=== PATIENT | female | born 1990 | race Caucasian/White ===

== ENCOUNTER → 2019-12-31 | Outpatient (CLI) | payer MEDICAID ==
[2019-12-31 17:20] LABS: ABSOLUTE EOSINOPHILS # (AUTO) 0.1 10^3/uL (0.0-0.6); ABSOLUTE LYMPHOCYTES (AUTO) 1.7 10^3/uL (0.5-4.7); ABSOLUTE MONOCYTES (AUTO) 0.7 10^3/uL (0.1-1.4); ABSOLUTE NEUT (AUTO) 7.7 10^3/uL (1.7-8.2); BASOPHILS % (AUTO) 0.4 % (0-2); EOSINOPHILS % (AUTO) 0.8 % (0-6); HEMATOCRIT 31.9 % (36.0-47.0); LYMPHOCYTES % (AUTO) 16.6 % (13-45); MEAN CORPUSCULAR HEMOGLOBIN 29.5 pg (27.0-33.4); MEAN CORPUSCULAR HGB CONC 34.6 g/dL (32.0-36.0); MEAN CORPUSCULAR VOLUME 85 fl (80-97); MONOCYTES % (AUTO) 7.3 % (3-13); PLATELET COUNT 145 10^3/uL (150-450); RED BLOOD COUNT 3.74 10^6/uL (3.72-5.28); RED CELL DISTRIBUTION WIDTH 13.8 % (11.5-14.0); SEGMENTED NEUTROPHILS % (AUTO) 74.9 % (42-78); TOTAL CELLS COUNTED % (AUTO) 100 %; WHITE BLOOD COUNT 10.2 10^3/uL (4.0-10.5)
[2019-12-31 17:35] LABS: ALBUMIN 3.3 g/dL (3.5-5.0); ALKALINE PHOSPHATASE 107 U/L (38-126); ANION GAP 12 (5-19); ASPARTATE AMINO TRANSFERASE 55 U/L (14-36); BILIRUBIN,DIRECT 0.2 mg/dL (0.0-0.4); BILIRUBIN,TOTAL 0.5 mg/dL (0.2-1.3); BLOOD UREA NITROGEN 9 mg/dL (7-20); CALCIUM 9.6 mg/dL (8.4-10.2); CARBON DIOXIDE 19 mmol/L (22-30); CHLORIDE 105 mmol/L (98-107); GLUCOSE 105 mg/dL (75-110); POTASSIUM 3.9 mmol/L (3.6-5.0); URIC ACID 3.2 mg/dL (2.5-6.2)
== END ==
LOC: OD 16:24
PROVIDERS: ATTEND Obstetrics & Gynecology
DX: O13.9 Gestational [pregnancy-induced] hypertension without significant proteinuria, unspecified trimester (principal); Z3A.00 Weeks of gestation of pregnancy not specified
CPT/HCPCS: 36415; 80053; 83615; 84550; 85025

== ENCOUNTER 2020-01-24 16:13 | Outpatient (CLI) | payer MEDICAID ==
[2020-01-24 16:58] LABS: ABSOLUTE EOSINOPHILS # (AUTO) 0.1 10^3/uL (0.0-0.6); ABSOLUTE LYMPHOCYTES (AUTO) 1.8 10^3/uL (0.5-4.7); ABSOLUTE MONOCYTES (AUTO) 0.6 10^3/uL (0.1-1.4); ABSOLUTE NEUT (AUTO) 6.2 10^3/uL (1.7-8.2); BASOPHILS % (AUTO) 0.4 % (0-2); EOSINOPHILS % (AUTO) 0.8 % (0-6); HEMATOCRIT 35.2 % (36.0-47.0); HEMOGLOBIN 11.7 g/dL (12.0-15.5); LYMPHOCYTES % (AUTO) 20.9 % (13-45); MEAN CORPUSCULAR HEMOGLOBIN 29.1 pg (27.0-33.4); MEAN CORPUSCULAR HGB CONC 33.3 g/dL (32.0-36.0); MEAN CORPUSCULAR VOLUME 87 fl (80-97); MONOCYTES % (AUTO) 7.3 % (3-13); PLATELET COUNT 150 10^3/uL (150-450); RED BLOOD COUNT 4.02 10^6/uL (3.72-5.28); RED CELL DISTRIBUTION WIDTH 16.5 % (11.5-14.0); SEGMENTED NEUTROPHILS % (AUTO) 70.6 % (42-78); TOTAL CELLS COUNTED % (AUTO) 100 %; WHITE BLOOD COUNT 8.8 10^3/uL (4.0-10.5)
[2020-01-24 17:18] LABS: ALBUMIN 3.4 g/dL (3.5-5.0); ALKALINE PHOSPHATASE 135 U/L (38-126); ANION GAP 7 (5-19); ASPARTATE AMINO TRANSFERASE 35 U/L (14-36); BILIRUBIN,DIRECT 0.1 mg/dL (0.0-0.4); BILIRUBIN,TOTAL 0.5 mg/dL (0.2-1.3); BLOOD UREA NITROGEN 11 mg/dL (7-20); CALCIUM 9.5 mg/dL (8.4-10.2); CARBON DIOXIDE 24 mmol/L (22-30); CHLORIDE 104 mmol/L (98-107); GLUCOSE 89 mg/dL (75-110); POTASSIUM 4.1 mmol/L (3.6-5.0); TOTAL PROTEIN 6.1 g/dL (6.3-8.2); URIC ACID 3.9 mg/dL (2.5-6.2)
[2020-01-24 17:23] LABS: APPEARANCE,URINE CLOUDY; BILIRUBIN,URINE NEGATIVE (NEGATIVE); COLOR,URINE YELLOW; GLUCOSE, URINE NEGATIVE (NEGATIVE); KETONES,URINE NEGATIVE (NEGATIVE); LEUKOCYTE ESTERASE,URINE SMALL (NEGATIVE); NITRITE,URINE NEGATIVE (NEGATIVE); PROTEIN,URINE NEGATIVE (NEGATIVE); URINE SPECIFIC GRAVITY 1.009; UROBILINOGEN,URINE NEGATIVE mg/dL (<2.0)
[2020-01-24 17:42] LABS: URINE AMPHETAMINES SCREEN NEGATIVE; URINE BARBITURATES SCREEN NEGATIVE; URINE BENZODIAZEPINES SCREEN NEGATIVE; URINE COCAINE SCREEN NEGATIVE; URINE MARIJUANA (THC) SCREEN NEGATIVE; URINE METHADONE SCREEN NEGATIVE; URINE PHENCYCLIDINE SCREEN NEGATIVE
[2020-01-24 17:46] LABS: UR PRO/CREAT RATIO RESULT 0.5 mg/mg (0.0-0.2); URINE CREATININE 31.3 mg/dL (16-327); URINE PROTEIN 15.2 mg/dL (<12)
--- NOTE | 2020-01-24 18:21 | Non Stress Test Report ---
Non Stress Test Datetime Report Generated by CPN: 01/24/2020 18:21 DEMOGRAPHIC Test Number: 1 EGA NST: 36.6 INDICATION Indication for Study (NST) Other: Pre Eclampcia work up VITAL SIGNS Pulse - NST: 77 NBPSYS NST: 129 NBPDIA NST: 93 MONITORING Monitor Explained: Monitor Explained; Test Explained; Patient Verbalized Understanding Time on Monitor: 01/24/2020 16:27 Time off Monitor: 01/24/2020 16:47 NST Duration: 20 NST INTERVENTIONS NST Interventions: PO Hydration Physician Notified NST: Dr. Hernandez BABY A: [id number] BABY A Movement : Present Contraction Frequency : Irregular FHR Baseline : 15 Accelerations : 15X15 Decelerations : None Variability : Moderate 6-25bpm NST Review: Meets Criteria for Reactive NST NST Review and Verified By : ZOILA Jacinto NST Results: Reactive NST REPORT Report Trigger: Send Report
== END 2020-01-24 18:12 | disposition home or self-care (01) ==
LOC: LC 16:13
PROVIDERS: ATTEND Obstetrics & Gynecology Gynecology
DX: O14.93 Unspecified pre-eclampsia, third trimester (principal); Z3A.36 36 weeks gestation of pregnancy
CPT/HCPCS: 36415; 59025; 80053; 80307; 81005; 82570; 83615; 84156; 84550; 85025; 94760

== ENCOUNTER 2020-01-26 13:37 | Inpatient (IN) | payer MEDICAID ==
[2020-01-26 14:32] LABS: APPEARANCE,URINE CLEAR; BILIRUBIN,URINE NEGATIVE (NEGATIVE); COLOR,URINE STRAW; GLUCOSE, URINE NEGATIVE (NEGATIVE); KETONES,URINE NEGATIVE (NEGATIVE); LEUKOCYTE ESTERASE,URINE SMALL (NEGATIVE); NITRITE,URINE NEGATIVE (NEGATIVE); PROTEIN,URINE NEGATIVE (NEGATIVE); URINE SPECIFIC GRAVITY 1.008; UROBILINOGEN,URINE NEGATIVE mg/dL (<2.0)
[2020-01-26] MEDS ORDERED: PROMETHAZINE HCL INJ 25 MG/1 ML VIAL IV ONE (14:42)
[2020-01-26] MEDS ORDERED: ACETAMINOPHEN 325 MG TABLET PO ONE (14:42)
[2020-01-26] MEDS ORDERED: ACETAMINOPHEN 325 MG TABLET ONE (14:47)
[2020-01-26] MEDS ORDERED: PROMETHAZINE HCL INJ 25 MG/1 ML VIAL ONE (14:47)
[2020-01-26 14:49] LABS: URINE AMPHETAMINES SCREEN NEGATIVE; URINE BARBITURATES SCREEN NEGATIVE; URINE BENZODIAZEPINES SCREEN NEGATIVE; URINE COCAINE SCREEN NEGATIVE; URINE MARIJUANA (THC) SCREEN NEGATIVE; URINE METHADONE SCREEN NEGATIVE; URINE PHENCYCLIDINE SCREEN NEGATIVE
[2020-01-26] MEDS: RINGERS SOLUTION,LACTATED 1,000 ML IV PRN ×2 (15:00→16:32)
[2020-01-26 15:39] LABS: UR PRO/CREAT RATIO RESULT 0.4 mg/mg (0.0-0.2); URINE CREATININE 31.1 mg/dL (16-327); URINE PROTEIN 13.9 mg/dL (<12)
[2020-01-26 15:51] LABS: HEMATOCRIT 34.8 % (36.0-47.0); MEAN CORPUSCULAR HEMOGLOBIN 29.5 pg (27.0-33.4); MEAN CORPUSCULAR HGB CONC 34.3 g/dL (32.0-36.0); MEAN CORPUSCULAR VOLUME 86 fl (80-97); PLATELET COUNT 146 10^3/uL (150-450); RED BLOOD COUNT 4.05 10^6/uL (3.72-5.28); RED CELL DISTRIBUTION WIDTH 16.4 % (11.5-14.0); WHITE BLOOD COUNT 9.4 10^3/uL (4.0-10.5)
[2020-01-26] MEDS ORDERED: CEFAZOLIN 1 GM/D5W RTU 1 GM/50 ML RTUPB IV ONE ×2 (15:56→16:18)
[2020-01-26 16:08] LABS: ALBUMIN 3.4 g/dL (3.5-5.0); ALKALINE PHOSPHATASE 144 U/L (38-126); ANION GAP 9 (5-19); ASPARTATE AMINO TRANSFERASE 31 U/L (14-36); BILIRUBIN,TOTAL 0.4 mg/dL (0.2-1.3); BLOOD UREA NITROGEN 10 mg/dL (7-20); CALCIUM 9.5 mg/dL (8.4-10.2); CARBON DIOXIDE 21 mmol/L (22-30); CHLORIDE 106 mmol/L (98-107); GLUCOSE 88 mg/dL (75-110); POTASSIUM 4.1 mmol/L (3.6-5.0); TOTAL PROTEIN 6.3 g/dL (6.3-8.2); URIC ACID 3.8 mg/dL (2.5-6.2)
[2020-01-26] MEDS ORDERED: CITRIC ACID/SODIUM CITRATE ORAL SOLN 15 ML UDCUP ONE (16:18)
[2020-01-26] MEDS ORDERED: HYDRALAZINE HCL INJ/PF 20 MG/1 ML SDV ONE (16:21)
--- NOTE | 2020-01-26 16:21 | Admission Physical ---
Datetime Report Generated by CPN: 01/26/2020 16:20 CURRENT ADMISSION Chief Complaint: Signs/Symptoms Gestational HTN Indication for Induction: Not Applicable Admit Impression : Term, Intrauterine Admit Plan: Admit to Unit; Initiate Section Protocol ALLERGIES Medication Allergies: No Medication Allergies: No Known Allergies (01/26/2020) Latex: No Latex Allergies Food Allergies: None Environmental Allergies: Bees OBSTETRICAL HISTORY EDC: 02/15/2020 00:00 : 4 Para: 3 Term: 3 : 0 SAB: 0 IAB: 0 Ectopic: 0 Livin Cesareans: 1 VBACs: 1 Multiple Births: 0 Gestational Diabetes: No Rh Sensitization: No Incompetent Cervix: No ESTEFANIA: No Infertility: No ART Treatment: No Uterine Anomaly: Yes IUGR: No Hx Previous C/S: Yes Macrosomia: No Hx Loss/Stillborn: No PIH: Yes Hx : No Placenta Previa/Abruption: No Depression/PP Depression: No PTL/PROM: No Post Hemorrhage: No Current Procedures: Ultrasound; NST Obstetrical History Comments: G1- 2008, Vaginal, IOL G2- 2010, G3- 2012, G4- Current, B/P issues, scheduled SEE RECORDS Alcohol: No Marijuana : No Cocaine: No Other Illicit Drugs: No Cigarettes: Never Smoker. 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 Heart Disease: No Hosp/Surgery: No Autoimmune Disorder: No Anesthetic Complications: No Kidney Disease: Yes Abnormal Pap Smear: No Neuro/Epilepsy: No Psychiatric Disorders: No Other Medical Diseases: No Hepatitis/Liver Disease: No Significant Family History: No Varicosities/Phlebitis: No Trauma/Violence : No Thyroid Dysfunction: No Medical History Comments: H/O uti, childbirth and INFECTIOUS HISTORY Gonorrhea: No Genital Herpes: Yes Chlamydia: No Tuberculosis: No Syphilis: No Hepatitis: No HIV/AIDS Exposure: No Rash or Viral Illness: No HPV: No Infectious History Comments: Started Valtrex 01/25/2020 PHYSICAL EXAM General: Normal HEENT: Normal Neurologic: Normal Thyroid: Normal Heart: Normal Lungs: Normal Breast: Deferred Back: Normal Abdomen: Normal Genitourinary Exam: Normal Extremities: Normal DTRs: Normal Pelvic Type: Adequate Vital Signs: Reviewed FETUS A EGA: 37.1 Monitoring: External US FHR- Baseline: 140 Variability: Moderate 6-25bpm Decelerations: None FHR Category: Category I Presentation: Vertex Admit Comment: Pt with gestational hypertension at 37 wks for a repeat c section. PLANS FOR LABOR AND DELIVERY Labor and Delivery: None Pain Management: Spinal Feeding Preference: Breast Benefit of Breast Feed Discussed: Yes Circumcision: Yes INFORMED CONSENT Signature: with User ID: [email or web address]
[2020-01-26] MEDS ORDERED: HYDRALAZINE HCL INJ/PF 20 MG/1 ML SDV IV ONE (16:25)
[2020-01-26] MEDS ORDERED: OXYCODONE-ACETAMINOPHEN 5-325 MG TABLET PO PRN (16:29)
[2020-01-26] MEDS ORDERED: ACETAMINOPHEN 325 MG TABLET PO PRN (16:29)
[2020-01-26] MEDS ORDERED: OXYTOCIN/0.9 % SODIUM CHLORIDE 30 UNIT/500 ML RTUINJ IV PRN (16:29)
[2020-01-26] MEDS ORDERED: DIPH/PERTUSS(ACELL)/TETANUS VAC/PF 0.5 ML SYR (>=10YO) IM PRN (16:29)
[2020-01-26] MEDS ORDERED: PROMETHAZINE HCL INJ 25 MG/1 ML VIAL IV PRN (16:29)
[2020-01-26] MEDS ORDERED: ACETAMINOPHEN 1,000 MG/100 ML RTUPB IV PRN (16:29)
[2020-01-26] MEDS ORDERED: MEASLES,MUMPS&RUBELLA VACC/PF 0.5 ML VIAL SUBCUT PRN (16:29)
[2020-01-26] MEDS ORDERED: SIMETHICONE 80 MG TAB.CHEW PO PRN (16:29)
[2020-01-26] MEDS ORDERED: RINGERS SOLUTION,LACTATED 1,000 ML IV PRN (16:29)
[2020-01-26] MEDS ORDERED: HYDROMORPHONE HCL INJ/PF 2 MG/ML AMPULE IV PRN (16:29)
[2020-01-26] MEDS ORDERED: OXYTOCIN 10 UNIT/ML VIAL ONE (16:53)
[2020-01-26] MEDS ORDERED: OXYTOCIN/0.9 % SODIUM CHLORIDE 30 UNIT/500 ML RTUINJ ONE (16:53)
[2020-01-26] MEDS ORDERED: EPHEDRINE SULFATE INJ 50 MG/1 ML AMPULE ONE (16:53)
[2020-01-26] MEDS ORDERED: ONDANSETRON HCL INJ/PF 4 MG/2 ML SDV ONE (16:53)
[2020-01-26] MEDS ORDERED: MIDAZOLAM 2 MG/2 ML INJ ONE (16:53)
[2020-01-26] MEDS ORDERED: FENTANYL CITRATE INJ/PF 100 MCG/2 ML AMPUL ONE (16:53)
[2020-01-26] MEDS ORDERED: KETOROLAC TROMETHAMINE INJ/PF 30 MG/1 ML SDV ONE (16:53)
[2020-01-26] MEDS ORDERED: ACETAMINOPHEN 1,000 MG/100 ML RTUPB IV ONE (16:53)
[2020-01-26] MEDS ORDERED: MAGNESIUM SULFATE 4 GM/100 ML RTUPB IV ONE ×2 (18:00→19:08)
--- NOTE | 2020-01-26 18:00 | Operative Report ---
Operative Report DATE OF SURGERY: 01/26/20 PREOPERATIVE DIAGNOSIS: Repeat and tubal ligation, severe preeclampsia POSTOPERATIVE DIAGNOSIS: Same OPERATION: Repeat via low transverse uterine incision and bilateral tubal ligation using Filshie clips SURGEON: CORRIE MENESES ANESTHESIA: Spinal TISSUE REMOVED OR ALTERED: Placenta COMPLICATIONS: None ESTIMATED BLOOD LOSS: 400 cc INTRAOPERATIVE FINDINGS: Viable male crying at delivery PROCEDURE: Patient was taken to the OR and placed in supine position after her spinal anesthesia. She is prepared and draped in sterile fashion. Gross was placed for drainage of the bladder. Low transverse incision was made and carried down the level of the fascia. The fascial incision was made with knife and extended bilaterally with curved Ohara scissors. The fascia was off the rectus muscles using sharp and blunt dissection. The rectus muscles are in the midline. The peritoneum was entered without incident. Bladder blade was placed in uterine segment was identified. A low transverse incision was made creating a bladder flap. Bladder blade was placed low transverse uterine incision was made with the knife and extended with fingertips. The baby was delivered with some fundal pressure. Mouth and nose were suctioned free. The cord is doubly clamped and cut. Baby is passed off to the test development engineer in attendance. The placenta was manually extracted with trailing membranes. The uterus was externalized wrapped in a moist lap sponge. Uterine contents wiped free. Uterus was closed with a running locking layer of 0 chromic suture using the second layer to imbricate the first completing a double layer closure of the uterus. The serosa was closed with a running 2-0 chromic stitch. The tubal ligation was performed by identifying each fallopian tube fimbriated end and then placing a Filshie clip across the mid isthmic portion of each tube. The pelvis was irrigated and suctioned free of fluid the uterus was replaced in the abdomen. The abdominal wall peritoneum was closed with running 2-0 chromic stitch. Fascia was closed with a running 0 Vicryl in 2 segments. Kathleen's layer was brought together with 0 plain gut stitch and the skin was closed with running subcuticular 4-0 undyed Vicryl stitch. The wound was dressed mother and baby did well.
[2020-01-26] MEDS ORDERED: NALBUPHINE HCL INJ 10 MG/1 ML AMPULE ONE (18:03)
[2020-01-26] MEDS ORDERED: MAGNESIUM SULFATE 20 GM/500 ML RTUINJ IV ONE (19:08)
[2020-01-26] MEDS: MAGNESIUM SULFATE 20 GM/500 ML RTUINJ IV PRN (19:55)
[2020-01-26] MEDS ORDERED: OXYCODONE-ACETAMINOPHEN 5-325 MG TABLET ONE ×2 (20:20→21:01)
[2020-01-26] MEDS: DOCUSATE SODIUM 100 MG CAPSULE PO SCH (20:40)
[2020-01-26] MEDS: KETOROLAC TROMETHAMINE INJ/PF 30 MG/1 ML SDV IV SCH (22:35)
[2020-01-27] MEDS: OXYCODONE-ACETAMINOPHEN 5-325 MG TABLET PO PRN ×4 (01:42→19:09)
[2020-01-27] MEDS: MAGNESIUM SULFATE 20 GM/500 ML RTUINJ IV PRN (04:48)
[2020-01-27 06:49] LABS: HEMATOCRIT 30.3 % (36.0-47.0); HEMOGLOBIN 10.2 g/dL (12.0-15.5); MEAN CORPUSCULAR HEMOGLOBIN 29.1 pg (27.0-33.4); MEAN CORPUSCULAR HGB CONC 33.6 g/dL (32.0-36.0); MEAN CORPUSCULAR VOLUME 87 fl (80-97); PLATELET COUNT 135 10^3/uL (150-450); RED CELL DISTRIBUTION WIDTH 16.9 % (11.5-14.0); WHITE BLOOD COUNT 12.5 10^3/uL (4.0-10.5)
[2020-01-27] MEDS ORDERED: KETOROLAC TROMETHAMINE INJ/PF 30 MG/1 ML SDV ONE (07:13)
[2020-01-27] MEDS: KETOROLAC TROMETHAMINE INJ/PF 30 MG/1 ML SDV IV SCH ×2 (07:15→15:17)
--- NOTE | 2020-01-27 07:59 | Delivery Summary ---
Del Sum A-C Datetime Report Generated by CPN: 01/27/2020 07:58 DELIVERY PERSONNEL DELIVERY PERSONNEL: [id number] Delivery Doctor:: Jessy Quiroz MD PAINTER AND BODY MECHANIC APPRENTICE:: Hai Su CRNA Superintendent Colliery:: SAMUEL Pierre Nurse Practitioner:: NGOC Trevino (Annotations: Data stored by Lesly on behalf of user) Nursery Nurse:: Minda Bonilla RN Spring Clipper/FLOOR SPACE ALLOCATOR: ST Jae Spring Clipper/FLOOR SPACE ALLOCATOR: Deon Cifuentes, DIGITAL PHOTO PRINTER MATERNAL INFORMATION Delivery Anesthesia: Spinal Medications After Delivery: Pitocin 30 Units in 500ml NS/D5W Delivery QBL: 430 Maternal Complications: None LABOR SUMMARY EDC: 02/15/2020 00:00 No. Babies in Womb: 1 Attempted: No Labor Anesthesia: None LABOR INFORMATION Reason for Induction: Not Applicable Oxytocin: N/A Group B Beta Strep: positive Antibiotics # of Doses: 1 Antibiotics Time of Last Dose: 01/26/2020 16:29 Name of Antibiotic Given: Ancef Steroids Given: None Reason Steroids Not Administered: Not Applicable MEMBRANES Membranes Rupture Method: Artificial Rupture of Membranes: 01/26/2020 17:29 Length of Rupture (hr): 0.00 Amniotic Fluid Color: Clear Amniotic Fluid Amount: Moderate Amniotic Fluid Odor: Normal STAGES OF LABOR Stage 3 hr: 0 Stage 3 min: 1 VAGINAL DELIVERY Episiotomy: None Laceration #1: None Laceration Extension #1: N/A Laceration Repair: Not Applicable Sponge Count Correct: N/A Sharps Count Correct: N/A CSECTION DELIVERY Primary Indication: repeat Secondary Indication: pre-eclampsia CSection Urgency: Non-Scheduled CSection Incidence: Repeat Labor: No Labor Elective: Nonelective CSection Incision: Lower Uterine Transverse BABY A INFORMATION Infant Delivery Date/Time: 01/26/2020 17:29 Method of Delivery: Nurse Controlled Delivery: No Born in Route : No : N/A Forceps: N/A Vacuum Extraction: N/A Shoulder Dystocia : No PRESENTATION/POSITION BABY A Presentation: Cephalic Breech Presentation: N/A PLACENTA INFORMATION BABY A Placenta Delivery Time : 01/26/2020 17:30 Placenta Method of Delivery: Manual Removal Placenta Status: Delivered SCORES BABY A Heart Rate 1 min: >100 bpm Resp Effort 1 min: Good Cry Reflex Irritability 1 min: Cough or Sneeze or Pulls Away Muscle Tone 1 min: Active Motion Color 1 min: Blue/Pale Resuscitation Effort 1 min: Tactile Stimulation SCORE 1 MIN: 8 Heart Rate 5 min: >100 bpm Resp Effort 5 min: Good Cry Reflex Irritability 5 min: Cough or Sneeze or Pulls Away Muscle Tone 5 min: Active Motion Color 5 min: Body Jolly, Extremities Blue SCORE 5 MIN: 9 INFORMATION BABY A Gestational Age at Delivery: 37.1 Gestational Status: Early Term- 37- 38.6 Weeks Outcome : Liveborn Infant Condition : Stable Sex: Male IDENTIFICATION BABY A Verification Date/Time: 01/26/2020 18:20 ID Band Number: [id number] Mother's Name Verified: Yes RN Verifying : SAutry Additional Verifying Personnel: B Baidy WEIGHT/LENGTH BABY A Infant Birthweight (gm): 2720 Infant Weight (lb): 6 Weight (oz): 0 Length (in): 19.50 Length (cm): 49.53 CORD INFORMATION BABY A No. Cord Vessels: 3 Nuchal Cord : N/A Cord Blood Taken: Yes-For Eval (Mom's Blood Type - or O+) ASSESSMENT BABY A Skin to Skin: Yes BABY B INFORMATION : N/A
--- NOTE | 2020-01-27 07:59 | Birth Certificate Data ---
Cert Data Datetime Report Generated by CPN: 01/27/2020 07:58 CERTIFICATE DATA Delivery Provider: Jessy Quiroz MD (01/24/2020 16:19:Rhona Truong RN) 47b. Date of First Visit: 11/15/2019 00:00 (01/24/2020 16:19:Rhona Truong RN) 47c. Date of Last Visit: 01/24/2020 00:00 (01/24/2020 16:19:Rhona Truong RN) 47d. Number of Visits: 9 (01/24/2020 16:19:Rhona Truong RN) 48a. Number of Prev Live Births: 3 (01/24/2020 16:19:Deon Cifuentes RN) 48b. Now Livin (01/24/2020 16:19:Deon Cifuentes RN) 48c. Live Births Now : 0 (01/24/2020 16:19:QS system process) 48e. Losses: 0 (01/24/2020 16:19:Deon Cifuentes RN) RISK FACTORS IN THIS 49a. Diabetes: No (01/24/2020 16:19:Deon Cifuentes RN) 49b. Hypertension: No (01/24/2020 16:19:Deon Cifuentes RN) Type of Hypertension: Gestational (PIH, Pre-eclampsia) (01/24/2020 16:19:Deon Cifuentes RN) 49c. Previous Births: 0 (01/24/2020 16:19:Deon Cifuentes RN) 49d. Stillborns: No (01/24/2020 16:19:Deon Cifuentes RN) 49d. IUGR: No (01/24/2020 16:19:Deon Cifuentes RN) 49e. Infertility Treatment: No (01/24/2020 16:19:Deon Cifuentes RN) 49f. Previous Cesareans: 1 (01/24/2020 16:19:Deon Cifuentes RN) Mother's Height 50b. Height Inches: 62 (01/26/2020 13:47:QS system process) Mother's Weight 51a. Pre- Weight (lbs): 103 (01/24/2020 16:19:Rhona Truong RN) 51b. Weight at Delivery (lbs): 139 (01/24/2020 16:24:QS system process) Infections Present/Treated 53a. Gonorrhea: No (01/24/2020 16:19:Deon Cifuentes RN) Results this Hospital Visit : Negative (01/24/2020 16:19:Sheyla Sultana RN) 53b. Syphilis: No (01/24/2020 16:19:Deon Cifuentes RN) 53c. Chlamydia: No (01/24/2020 16:19:Deon Cifuentes RN) Results this Hospital Visit: Negative (01/24/2020 16:19:Sheyla Sultana RN) 53d. Hepatitis B: No (01/24/2020 16:19:Deon Cifuentes RN) Results this Hospital Visit: Negative (01/24/2020 16:19:Deon Cifuentes RN) 53e. Hepatitis C: Negative (01/24/2020 16:19:Sheyla Sultana RN) 53h. Mother Tested for HBsAG: Yes (01/24/2020 16:19:Sheyla Sultana RN) 53j. Test Result: Negative (01/24/2020 16:19:Deon Cifuentes RN) Obstetric Procedures 54a, b, c. Obstetric Procedures: Ultrasound; NST (01/24/2020 16:19:Deon Cifuentes RN) Cigarette Smoking Cigarette Smoking: Never Smoker. [id number] (01/24/2020 16:19:Deon Cifuentes RN) 55a. 3 Months Before Preg - Ci (01/24/2020 16:19:Deon Cifuentes RN) 55a. Packs: 0 (01/24/2020 16:19:Deon Cifuentes RN) 55b. 1st Trimester of Preg- Ci (01/24/2020 16:19:Deon Cifuentes RN) 55b. Packs: 0 (01/24/2020 16:19:Deon Cifuentes RN) 55c. 2nd Trimester of Preg- Ci (01/24/2020 16:19:Deon Cifuentes RN) 55c. Packs: 0 (01/24/2020 16:19:Deon Cifuentes RN) 55d. 3rd Trimester of Preg- Ci (01/24/2020 16:19:Deon Cifuentes RN) 55d. Packs: 0 (01/24/2020 16:19:Deon Cifuentes RN) Onset of Labor 56a. PROM >12 Hrs: 0.00 (01/24/2020 16:19:QS system process) 57a. Induction of Labor: N/A (01/24/2020 16:19:Rhona Truong RN) 57d. Steroids - Lung Mat: None (01/24/2020 16:19:Rhona Truong RN) 57d. Steroids - Lung Mat: Not Applicable (01/24/2020 16:19:Rhona Truong RN) 57e. Antibiotics During Labor: 01/26/2020 16:29 (01/24/2020 16:19:Sheyla Sultana RN) 57f. Mat [place] or Temp >100.4: 98.6 (01/24/2020 16:19:Nikky Vásquez RN) 57g. Moderate/Heavy Meconium: Clear (01/24/2020 16:19:Sheyla Sultana RN) 57h. Intolerance of Labor: repeat (01/24/2020 16:19:Sheyla Sultana RN) : pre-eclampsia (01/24/2020 16:19:Sheyla Sultana RN) 57i. Epidural/Spinal Anesthesia: None (01/24/2020 16:19:Rhona Truong RN) Method of Delivery 58a. Forceps - Unsuccessful A: N/A (01/24/2020 16:19:Rhona Truong RN) 58b. Vacuum - Unsuccessful A: N/A (01/24/2020 16:19:Rhona Truong RN) 58c. Presentation at 58c. Presentation at - A : N/A (01/24/2020 16:19:Rhona Truong RN) 58c. Presentation at - A : Cephalic (01/24/2020 16:19:Carlos Kent, DOCUMENT MANAGER) Final Route and Method of Del 58d. Baby A Route/Delivery: (01/24/2020 16:19:Rhona Truong RN) 58e. Trial of Labor Attempted: No (01/24/2020 16:19:Rhona Truong RN) 58e. Trial of Labor Attempted A: N/A (01/24/2020 16:19:Rhona Truong RN) 58e. Trial of Labor Attempted B: N/A (01/24/2020 16:19:Rhona Truong RN) Maternal Morbidity 59b. 3rd or 4th Degree Lacs: None (01/24/2020 16:19:Rhona Truong RN) Birthweight Baby A: 2720 (01/24/2020 16:19:Rhona Truong RN) 60a. Pounds : 6 (01/24/2020 16:19:QS system process) 60b. Ounces: 0 (01/24/2020 16:19:QS system process) 61. GA at Delivery Baby A: 37.1 (01/24/2020 16:19:Rhona Truong RN) : Early Term- 37- 38.6 Weeks (01/24/2020 16:19:QS system process) 62a. 5 Minute Baby A: 9 (01/24/2020 16:19:QS system process)
--- NOTE | 2020-01-27 10:22 | PDOC PROGRESS REPORT ---
Subjective-OB Progress Note for:: 01/27/20 Subjective: feeling good, sitting up in bed with baby, pain under control, voiding, eating well Physical Exam (OB) Vital Signs: Temp Pulse Resp BP Pulse Ox 97.6 F 76 18 132/80 H 98 01/27/20 10:00 01/27/20 08:22 01/27/20 08:22 01/27/20 08:22 01/27/20 08:22 Intake & Output 01/26/20 01/27/20 01/28/20 07:59 06:59 06:59 Intake Total Balance Weight - Maternal Morbidity 59. Maternal Morbidity (serious complications experinced by the mother associated with labor and delivery: None of the above Objective-Diagnostic Laboratory: 01/27/20 06:35 01/26/20 15:25 01/26/20 01/26/20 01/26/20 13:46 15:25 15:25 WBC 9.4 RBC 4.05 Hgb 12.0 Hct 34.8 L MCV 86 MCH 29.5 MCHC 34.3 RDW 16.4 H Plt Count 146 L Sodium 136.1 L Potassium 4.1 Chloride 106 Carbon Dioxide 21 L Anion Gap 9 BUN 10 Creatinine 0.54 Est GFR ( Amer) > 60 Glucose 88 Uric Acid 3.8 Calcium 9.5 Total Bilirubin 0.4 AST 31 Alkaline Phosphatase 144 H Total Protein 6.3 Albumin 3.4 L Urine Color STRAW Urine Appearance CLEAR Urine pH 8.0 Ur Specific [place] 1.008 Urine Protein NEGATIVE Urine Glucose (UA) NEGATIVE Urine Ketones NEGATIVE Urine Blood NEGATIVE Urine Nitrite NEGATIVE Ur Leukocyte Esterase SMALL H Urine WBC (Auto) 0 Urine RBC (Auto) 0 Blood Type Antibody Screen 01/26/20 01/27/20 16:08 06:35 WBC 12.5 H RBC 3.50 L Hgb 10.2 L Hct 30.3 L MCV 87 MCH 29.1 MCHC 33.6 RDW 16.9 H Plt Count 135 L Sodium Potassium Chloride Carbon Dioxide Anion Gap BUN Creatinine Est GFR ( Amer) Glucose Uric Acid Calcium Total Bilirubin AST Alkaline Phosphatase Total Protein Albumin Urine Color Urine Appearance Urine pH Ur Specific [place] Urine Protein Urine Glucose (UA) Urine Ketones Urine Blood Urine Nitrite Ur Leukocyte Esterase Urine WBC (Auto) Urine RBC (Auto) Blood Type O POSITIVE Antibody Screen NEGATIVE Assessment and Plan(PN) - Assessment and Plan (1) Mild pre-eclampsia delivered Is this a current diagnosis for this admission?: Yes (2) Status post repeat low transverse section Is this a current diagnosis for this admission?: Yes - Time Spent with Patient Time with patient: Less than 15 minutes Medications reviewed and adjusted accordingly: Yes - Disposition Anticipated Discharge Disposition: Home, Self Care Anticipated Discharge Timeframe: within 48 hours
[2020-01-27] MEDS: DOCUSATE SODIUM 100 MG CAPSULE PO SCH ×2 (10:28→17:17)
[2020-01-27] MEDS: PRENATAL VITAMIN W DHA CAPSULE PO SCH (10:29)
[2020-01-27] MEDS: IBUPROFEN 800 MG TABLET PO SCH ×2 (18:58→23:02)
[2020-01-28] MEDS: IBUPROFEN 800 MG TABLET PO SCH ×2 (05:56→12:37)
[2020-01-28] MEDS: DOCUSATE SODIUM 100 MG CAPSULE PO SCH (09:14)
[2020-01-28] MEDS: PRENATAL VITAMIN W DHA CAPSULE PO SCH (09:14)
--- NOTE | 2020-01-28 11:05 | PDOC DISCHARGE SUMMARY ---
Impression - Admit/DC Date/PCP Admission Date/Primary Care Provider: 01/26/20 16:00 JOHAN LEMOS MD Discharge Date: 01/28/20 - Discharge Diagnosis (1) Status post repeat low transverse section Is this a current diagnosis for this admission?: Yes - Additional Information Discharge Diet: Regular Discharge Activity: Balance Activity w/Rest, No Lifting Over 10 Pounds, No Lifting/Push/Pulling, Pelvic Rest, No tub bath Referrals: [facility] [Provider Group] Prescriptions: Oxycodone HCl/Acetaminophen [Percocet 5-325 mg Tablet] 1 tab PO Q4HP PRN #30 tablet PRN Reason: Home Medications: Vit No.130/Iron/Folic [ Tablet] 1 each PO DAILY 01/24/20 Oxycodone HCl/Acetaminophen [Percocet 5-325 mg Tablet] 1 tab PO Q4HP PRN #30 tablet 01/28/20 Hospital Course 59. Maternal Morbidity (serious complications experinced by the mother associated with labor and delivery: None of the above Results Laboratory Results: WBC 12.5 10^3/uL (4.0-10.5) H 01/27/20 06:35 RBC 3.50 10^6/uL (3.72-5.28) L 01/27/20 06:35 Hgb 10.2 g/dL (12.0-15.5) L 01/27/20 06:35 Hct 30.3 % (36.0-47.0) L 01/27/20 06:35 MCV 87 fl (80-97) 01/27/20 06:35 MCH 29.1 pg (27.0-33.4) 01/27/20 06:35 MCHC 33.6 g/dL (32.0-36.0) 01/27/20 06:35 RDW 16.9 % (11.5-14.0) H 01/27/20 06:35 Plt Count 135 10^3/uL (150-450) L 01/27/20 06:35 Sodium 136.1 mmol/L (137-145) L 01/26/20 15:25 Potassium 4.1 mmol/L (3.6-5.0) 01/26/20 15:25 Chloride 106 mmol/L (98-107) 01/26/20 15:25 Carbon Dioxide 21 mmol/L (22-30) L 01/26/20 15:25 Anion Gap 9 (5-19) 01/26/20 15:25 BUN 10 mg/dL (7-20) 01/26/20 15:25 Creatinine 0.54 mg/dL (0.52-1.25) 01/26/20 15:25 Est GFR ( Amer) > 60 (>60) 01/26/20 15:25 Est GFR (MDRD) Non-Af > 60 (>60) 01/26/20 15:25 Glucose 88 mg/dL (75-110) 01/26/20 15:25 Uric Acid 3.8 mg/dL (2.5-6.2) 01/26/20 15:25 Calcium 9.5 mg/dL (8.4-10.2) 01/26/20 15:25 Total Bilirubin 0.4 mg/dL (0.2-1.3) 01/26/20 15:25 Direct Bilirubin 0.0 mg/dL (0.0-0.4) 01/26/20 15:25 Neonat Total Bilirubin Not Reportable 01/26/20 15:25 Neonat Direct Bilirubin Not Reportable 01/26/20 15:25 Neonat Indirect Bili Not Reportable 01/26/20 15:25 AST 31 U/L (14-36) 01/26/20 15:25 ALT 29 U/L (<35) 01/26/20 15:25 Alkaline Phosphatase 144 U/L (38-126) H 01/26/20 15:25 Lactate Dehydrogenase 139 U/L (120-246) 01/26/20 15:25 Total Protein 6.3 g/dL (6.3-8.2) 01/26/20 15:25 Albumin 3.4 g/dL (3.5-5.0) L 01/26/20 15:25 Urine Color STRAW 01/26/20 13:46 Urine Appearance CLEAR 01/26/20 13:46 Urine pH 8.0 (5.0-9.0) 01/26/20 13:46 Ur Specific [place] 1.008 01/26/20 13:46 Urine Protein NEGATIVE mg/dL (NEGATIVE) 01/26/20 13:46 Urine Glucose (UA) NEGATIVE mg/dL (NEGATIVE) 01/26/20 13:46 Urine Ketones NEGATIVE mg/dL (NEGATIVE) 01/26/20 13:46 Urine Blood NEGATIVE (NEGATIVE) 01/26/20 13:46 Urine Nitrite NEGATIVE (NEGATIVE) 01/26/20 13:46 Urine Bilirubin NEGATIVE (NEGATIVE) 01/26/20 13:46 Urine Urobilinogen NEGATIVE mg/dL (<2.0) 01/26/20 13:46 Ur Leukocyte Esterase SMALL (NEGATIVE) H 01/26/20 13:46 Urine WBC (Auto) 0 /HPF 01/26/20 13:46 Urine RBC (Auto) 0 /HPF 01/26/20 13:46 Urine Bacteria (Auto) TRACE /HPF 01/26/20 13:46 Squamous Epi Cells Auto 1 /HPF 01/26/20 13:46 Urine Creatinine 31.1 mg/dL (16-327) 01/26/20 13:46 Protein/Creatinin Ratio 0.4 mg/mg (0.0-0.2) H 01/26/20 13:46 Urine Total Protein 13.9 mg/dL (<12) H 01/26/20 13:46 Urine Ascorbic Acid NEGATIVE (NEGATIVE) 01/26/20 13:46 Urine Opiates Screen NEGATIVE 01/26/20 13:46 Urine Methadone Screen NEGATIVE 01/26/20 13:46 Ur Barbiturates Screen NEGATIVE 01/26/20 13:46 Ur Phencyclidine Scrn NEGATIVE 01/26/20 13:46 Ur Amphetamines Screen NEGATIVE 01/26/20 13:46 U Benzodiazepines Scrn NEGATIVE 01/26/20 13:46 Urine Cocaine Screen NEGATIVE 01/26/20 13:46 U Marijuana (THC) Screen NEGATIVE 01/26/20 13:46 RPR NONREACTIVE (NONREACTIVE) 01/26/20 16:08 Blood Type O POSITIVE 01/26/20 16:08 Antibody Screen NEGATIVE 01/26/20 16:08 Plan Plan of Treatment: follow up in one week at [facility] for incision check
[2020-01-28 11:46] VITALS: BP 137/84
== END 2020-01-28 12:38 | disposition home or self-care (01) | DRG 784 ==
LOC: LC 13:37 → LR 16:00 → 2S 01-27 08:20
PROVIDERS: ADMIT Obstetrics & Gynecology; ATTEND Obstetrics & Gynecology
PROC: 10D00Z1 Extraction of Products of Conception, Low, Open Approach (ICD-10-PCS; principal; 2020-01-26)
PROC: 0UL70CZ Occlusion of Bilateral Fallopian Tubes with Extraluminal Device, Open Approach (ICD-10-PCS; 2020-01-26)
DX: O14.04 Mild to moderate pre-eclampsia, complicating childbirth (principal); Z30.2 Encounter for sterilization; O98.32 Other infections with a predominantly sexual mode of transmission complicating childbirth; O99.824 Streptococcus B carrier state complicating childbirth; A60.9 Anogenital herpesviral infection, unspecified; Z91.030 Bee allergy status; Z3A.37 37 weeks gestation of pregnancy; Z37.0 Single live birth
CPT/HCPCS: 1961; 36415; 80053; 80307; 81001; 82570; 83615; 84156; 84550; 85027; 86592; 86850; 86900; 86901; 94799; 99140; J0131; J0360; J0690; J1170; J1885; J2250; J2300; J2405; J2550; J2590; J3010; J3475; J3490